=== PATIENT | female | born 1990 | race Hispanic/Latino ===

== ENCOUNTER → 2017-01-26 | Outpatient (CLI) | payer SELFPAY | END | disposition home or self-care (01) | LOC: RAD 12-08 13:00 | DX: Z34.90 Encounter for supervision of normal pregnancy, unspecified, unspecified trimester (principal); Z3A.25 25 weeks gestation of pregnancy | CPT/HCPCS: 76811 ==

== ENCOUNTER 2017-02-06 12:46 | Outpatient (CLI) | payer SELFPAY ==
[~2017-02-06] VITALS: Ht 157.5 cm; Wt 63.5 kg
[2017-02-06 15:06] VITALS: BP 117/56
[2017-02-06 15:21] VITALS: BP 104/54
[2017-02-06 16:44] LABS: EOSINOPHIL (%) 0.3 % (0-5); HEMATOCRIT 38.5 % (36.0-46.0); IMMATURE GRANULOCYTE COUNT 0.1 K/uL; INSTRUMENT ABS NEUTROPHIL CT 9.7 K/uL; MCH 27.3 PG (29.0-34.0); MCHC 32.5 G/DL (30.0-36.0); MCV 84.1 FL (83-99); MEAN PLAT.VOLUME 9.5 uM^3 (9.5-12.4); MONOCYTE (%) 7.2 % (3-12); MONOCYTE COUNT 0.9 K/uL (0-0.8); NEUTROPHIL (%) 75.7 % (45-76); NEUTROPHIL COUNT 9.7 K/uL (1.8-6.4); PLATELET COUNT 320 K/uL (156-360); RBC DIS.WIDTH-CV 13.4 % (11.8-14.6); RBC DIS.WIDTH-SD 41.2 % (39-53); RED BLOOD COUNT 4.58 M/uL (3.80-5.20); WHITE BLOOD COUNT 12.9 K/uL (4.1-10.2)
[2017-02-06 16:49] LABS: ADD MIUA? NO; BILIRUBIN NEGATIVE; BLOOD NEGATIVE; COLOR STRAW ((YELLOW)); GLUCOSE (STRIP) NEGATIVE; KETONES NEGATIVE; LEUKOCYTES NEGATIVE; NITRITE NEGATIVE; PROTEIN (STRIP) NEGATIVE; SPECIFIC GRAVITY 1.003 (1.000-1.030); UCUL ADDED? NO; UROBILINOGEN 0.2 MG/DL (0.2-1.0)
[2017-02-06 17:14] VITALS: BP 115/59
[2017-02-06 18:13] VITALS: BP 111/59
[2017-02-06 22:08] VITALS: BP 130/58
[2017-02-07 02:44] VITALS: BP 124/57
[2017-02-07 07:29] VITALS: BP 118/56
[2017-02-07 11:20] VITALS: BP 118/57
== END 2017-02-07 12:29 | disposition home or self-care (01) ==
LOC: LDRP-OP 12:46 → RAD 12:46 → 2WEST 14:47
PROVIDERS: Obstetrics & Gynecology
DX: O60.03 Preterm labor without delivery, third trimester (principal); O36.5930 Maternal care for other known or suspected poor fetal growth, third trimester, not applicable or unspecified; O34.219 Maternal care for unspecified type scar from previous cesarean delivery; Z3A.28 28 weeks gestation of pregnancy; O09.33 Supervision of pregnancy with insufficient antenatal care, third trimester
CPT/HCPCS: 59025; 76805; 76818; 81003; 85025; G0378; J0702; J7120

== ENCOUNTER 2017-02-08 09:07 | Outpatient (CLI) | payer SELFPAY ==
[2017-02-08 09:26] VITALS: BP 120/60
== END 2017-02-08 12:21 | disposition home or self-care (01) ==
LOC: LDRP-OP → 2WEST 09:08 → LDRP-OP 21:16
DX: O36.5930 Maternal care for other known or suspected poor fetal growth, third trimester, not applicable or unspecified (principal); Z3A.29 29 weeks gestation of pregnancy
CPT/HCPCS: 59025; 76818; G0378; J0702

== ENCOUNTER → 2017-02-17 | Outpatient (CLI) | payer SELFPAY | END | disposition home or self-care (01) | LOC: RAD 12:46 | DX: Z3A.28 28 weeks gestation of pregnancy (principal); O28.3 Abnormal ultrasonic finding on antenatal screening of mother | CPT/HCPCS: 76805; 76818 ==

== ENCOUNTER 2017-04-01 06:23 | Inpatient (IN) | payer OTHER ==
[~2017-04-01] VITALS: Ht 157.5 cm; Wt 78.5 kg
[~2017-04-01 06:23] MED LIST: PRENATAL TABLE1 EAC3 PO
[2017-04-01 06:54] LABS: HEMATOCRIT 39.8 % (36.0-46.0); MCH 27.1 PG (29.0-34.0); MCHC 32.9 G/DL (30.0-36.0); MCV 82.4 FL (83-99); MEAN PLAT.VOLUME 10.1 uM^3 (9.5-12.4); PLATELET COUNT 252 K/uL (156-360); RBC DIS.WIDTH-CV 14.7 % (11.8-14.6); RBC DIS.WIDTH-SD 43.1 % (39-53); RED BLOOD COUNT 4.83 M/uL (3.80-5.20); WHITE BLOOD COUNT 11.7 K/uL (4.1-10.2)
[2017-04-01 07:43] VITALS: BP 105/58
[2017-04-01 08:33] VITALS: BP 108/58
[2017-04-01 12:09] VITALS: BP 108/54
[2017-04-01 13:28] VITALS: BP 121/60
[2017-04-01 15:28] VITALS: BP 120/60
[2017-04-01 17:00] VITALS: BP 127/67
[2017-04-02 06:32] LABS: EOSINOPHIL (%) 0.5 % (0-5); EOSINOPHIL COUNT 0.1 K/uL (0-0.3); HEMATOCRIT 32.7 % (36.0-46.0); IMMATURE GRANULOCYTE (%) 0.6 % (0.0-0.7); IMMATURE GRANULOCYTE COUNT 0.1 K/uL; INSTRUMENT ABS NEUTROPHIL CT 9.9 K/uL; LYMPHOCYTE COUNT 2.7 K/uL (1.0-2.8); MCHC 33.9 G/DL (30.0-36.0); MCV 82.6 FL (83-99); MEAN PLAT.VOLUME 10.3 uM^3 (9.5-12.4); MONOCYTE (%) 9.2 % (3-12); MONOCYTE COUNT 1.3 K/uL (0-0.8); NEUTROPHIL (%) 70.2 % (45-76); NEUTROPHIL COUNT 9.9 K/uL (1.8-6.4); PLATELET COUNT 226 K/uL (156-360); RBC DIS.WIDTH-CV 14.8 % (11.8-14.6); RBC DIS.WIDTH-SD 44.8 % (39-53); RED BLOOD COUNT 3.96 M/uL (3.80-5.20); WHITE BLOOD COUNT 14.1 K/uL (4.1-10.2)
[2017-04-02 07:22] VITALS: BP 98/59
[2017-04-02 10:56] VITALS: BP 107/65
[2017-04-02 15:14] VITALS: BP 108/64
[2017-04-03 07:26] VITALS: BP 119/61
[2017-04-03] MEDS ORDERED: ENDOCET 5-3251 EACH PO (08:58)
[2017-04-03] MEDS ORDERED: IBUPROFEN800 MG PO (08:58)
[2017-04-03 11:13] VITALS: BP 109/59
== END 2017-04-03 15:40 | disposition home or self-care (01) | DRG 765 ==
LOC: 2WEST 06:23 → 2SOUTH 12:12 → 2WEST 04-03 15:40
PROVIDERS: Obstetrics & Gynecology
PROC: 10D00Z1 Extraction of Products of Conception, Low, Open Approach (ICD-10-PCS; principal; 2017-04-01)
DX: O34.211 Maternal care for low transverse scar from previous cesarean delivery (principal); O99.02 Anemia complicating childbirth; D62 Acute posthemorrhagic anemia; O36.5930 Maternal care for other known or suspected poor fetal growth, third trimester, not applicable or unspecified; O99.814 Abnormal glucose complicating childbirth; O26.893 Other specified pregnancy related conditions, third trimester; O69.81X0 Labor and delivery complicated by cord around neck, without compression, not applicable or unspecified; O99.214 Obesity complicating childbirth; E66.3 Overweight; Z68.25 Body mass index [BMI] 25.0-25.9, adult; Z3A.36 36 weeks gestation of pregnancy; Z37.0 Single live birth
CPT/HCPCS: 85025; 85027; 86900; 86901; 88307; J0690; J1100; J2175; J2274; J2405; J7120